=== PATIENT | male | born 1970 | race Caucasian/White ===

== ENCOUNTER 2024-01-10 09:45 | Outpatient (CLI) | payer OTHER | END 2024-01-10 09:46 | disposition EMS.NT | LOC: EMS 09:45 | DX: M25.571 Pain in right ankle and joints of right foot (principal); W20.8XXA Other cause of strike by thrown, projected or falling object, initial encounter; Y93.H9 Activity, other involving exterior property and land maintenance, building and construction; Y92.71 Barn as the place of occurrence of the external cause ==

== ENCOUNTER 2024-01-10 10:12 | Emergency (ER) | payer SELFPAY ==
[2024-01-10 10:29] VITALS: O2SAT 100
--- NOTE | 2024-01-10 10:42 | ED Physician Documentation ---
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 , with pain limiting walking after that.) Where injury occurred: Work Timing - onset: Today Timing - details: Abrupt onset, Still present (painful weight bearing right ankle and knee.) Worsened by: Moving, Other (weight bearing) Associated symptoms: Swelling (right lateral ankle.). No: Weakness, Numbness Similar symptoms before: Has not had sx before Review of Systems Skin: denies: Abrasion (s), Laceration (s) Neurologic: denies: Focal weakness, Numbness, Altered mental status, Head injury, LOC PD PAST MEDICAL HISTORY - Past Medical History Past Medical History: No - Past Surgical History Past Surgical History: No - Present Medications Home Medications: Ambulatory Orders Medication Instructions Recorded Confirmed No Known Home Medications 01/10/24 01/10/24 - Allergies Allergies/Adverse Reactions: Allergies Allergy/AdvReac Type Severity Reaction Status Date / Time No Known Drug Allergies Allergy Verified 01/10/24 10:22 - Social History Does the pt smoke?: No Smoking Status: Never smoker Does the pt drink ETOH?: Yes Does the pt have substance abuse?: Yes Substance Use and Type: Marijuana PD ED PE NORMAL - Vitals Vital signs reviewed: Yes - General General: Alert and oriented X 3 - Cardiac Cardiac: RRR, No murmur - Respiratory Respiratory: Clear bilaterally - Abdomen Abdomen: Soft, Non tender - Derm Derm: Normal color, Warm and dry - Extremities Extremities: Other (right knee with tenderness medial aspect mainly. Minimal efusion. Cruciate testing firm and without pain. Valgus stress causing pain medial but no laxity. ankle with tenderness and swelling lateral malleolus. Achilles and medial aspect are okay. ) - Neuro Neuro: Alert and oriented X 3, No motor deficit, No sensory deficit, Normal speech Results - Vitals Vitals: Vital Signs - 24 hr 01/10/24 01/10/24 10:19 12:33 Temperature 36.2 C L Heart Rate 72 75 Respiratory 16 15 Rate Blood Pressure 133/72 H 130/81 H O2 Saturation 100 100 Oxygen O2 Source Room air - Rads (name of study) right knee Relevant Findings:: Prelim report reviewed (no fractures. ), EMP independent interpretation of test right ankle Relevant Findings:: Prelim report reviewed, EMP independent interpretation of test (distal fibular fracture below angle of the mortis. ) Procedures - Splint (location) - Minor ankle Splint applied by: Tech Type of splint: Other (boot orthosis) Other: Patient tolerated well, Crutches provided PD Medical Decision Making - ED course Complexity details: reviewed results (distal fibular fracture. Knee without noted fracture. ), considered differential (concern for ankle fracture. Knee clinically seems more likely MCL strain but want xray to ensure no fx. 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, MCL sprain of right knee Fracture of distal fibula Qualifiers: Encounter type: initial encounter Fracture type: closed Fracture morphology: unspecified fracture morphology Laterality: right Qualified Code(s): S82.831A - Other fracture of upper and lower end of right fibula, initial encounter for closed fracture Knee injury Qualifiers: Encounter type: initial encounter Laterality: right Qualified Code(s): S89.91XA - Unspecified injury of right lower leg, initial encounter Condition: Stable Record reviewed to determine appropriate education?: Yes Instructions: ED Sprain Knee, ED Fx Ankle Lateral Malleolus Follow-Up: [facility] [Provider Group] Comments: You do have a fracture at the end part of the outside bone of the ankle (fibula). I gave you a print of the picture of that. In that location of it, it should be able to be treated with a boot orthosis rather than hard cast per se and initially nonweightbearing until follow-up. I would suggest follow-up with orthopedics in about a 1 and half weeks to see how it is healing at that point. Call today or so for an appointment. Your knee x-ray has a couple of small specks within the joint space which may be old calcifications. It could represent small avulsions off the joint space. However clinically it seems more likely have a sprain of the medial collateral ligament. These can all be treated with the knee brace to keep it from moving around too much and be supported. You will be benefited with the nonweightbearing for the ankle anyway. Crutches for nonweightbearing. Partial weightbearing for balance and such as okay but not full weight initially. Elevate ice and rest often to reduce swelling the first few days. I would suggest some anti-inflammatory such as ibuprofen or naproxen 2-3 times daily for the next week. Take it with food. Add Tylenol every 4-6 hours if needed. I do not have the final radiology reports on the x-rays. I will call if there is any findings that they suggest more than this. Forms: PCP List Discharge Date/Time: 01/10/24 12:35
--- NOTE | 2024-01-10 12:41 | XRAY Report ---
PROCEDURE: Knee 4+V RT INDICATIONS: Trauma TECHNIQUE: 3 views of the knee was obtained. COMPARISON: None FINDINGS: Bones: No fractures or dislocations. No suspicious bony lesions. Soft tissues: No knee joint effusion. No suspicious soft tissue calcifications or masses. IMPRESSION: Unremarkable knee radiographs. No fracture. Reviewed by: Jt Poon MD on 01/10/2024 11:40 AM [facility] Approved by: Jt Poon MD on 01/10/2024 11:40 AM [facility] Station ID: [id number]
[2024-01-10 12:42] VITALS: BP 130/81
--- NOTE | 2024-01-10 12:43 | XRAY Report ---
PROCEDURE: Ankle 3+V RT INDICATIONS: Trauma TECHNIQUE: 3 views of the ankle were acquired. COMPARISON: None FINDINGS: Bones: Transverse fracture through the distal fibular tip mild lateral distraction. Ankle mortise is maintained. Small ossicle adjacent to the medial malleolar tip probably reflects old injury. Soft tissues: Associated soft tissue swelling. No radiopaque foreign body. IMPRESSION: Lateral malleolar acute fracture with associated soft tissue swelling Reviewed by: Jt Poon MD on 01/10/2024 11:41 AM [facility] Approved by: Jt Poon MD on 01/10/2024 11:41 AM [facility] Station ID: [id number]
== END 2024-01-10 12:35 | disposition home or self-care (01) ==
LOC: ED 10:12
DX: S82.61XA Displaced fracture of lateral malleolus of right fibula, initial encounter for closed fracture (principal); S83.411A Sprain of medial collateral ligament of right knee, initial encounter; W20.8XXA Other cause of strike by thrown, projected or falling object, initial encounter; Y92.89 Other specified places as the place of occurrence of the external cause; Y99.0 Civilian activity done for income or pay
CPT/HCPCS: 99284

== ENCOUNTER 2024-02-24 09:15 | Outpatient (CLI) | payer OTHER ==
--- NOTE | 2024-02-24 13:56 | XRAY Report ---
PROCEDURE: Ankle 3 View RT INDICATIONS: RIGHT ANKLE PAIN TECHNIQUE: 3 views of the ankle were acquired. COMPARISON: Radiographs 01/10/2024. FINDINGS: Bones: Ongoing healing of distal fibular tip fracture. No new fracture identified. Ankle mortise is normally aligned. No suspicious bony lesions. Soft tissues: No tibiotalar joint effusion. Achilles tendon appears normal. IMPRESSION: Ongoing healing of distal fibular fracture in unchanged alignment Reviewed by: Katerina Rosales MD, PhD on 02/24/2024 1:55 PM PDT Approved by: Katerina Rosales MD, PhD on 02/24/2024 1:55 PM PDT Station ID: [id number]
== END 2024-02-24 23:59 | disposition home or self-care (01) ==
LOC: DI.WOS 09:15
PROVIDERS: ATTEND Orthopaedic Surgery
DX: S82.831D Other fracture of upper and lower end of right fibula, subsequent encounter for closed fracture with routine healing (principal)